=== PATIENT | male | born 1980 | race African-American/Black ===

== ENCOUNTER 2020-08-21 17:20 | Emergency (ER) | payer MEDICARE ==
[~2020-08-21] VITALS: Ht 172.7 cm; Wt 115.7 kg
--- NOTE | 2020-08-21 17:50 | NUR ---
Patient came in to the er c/o +SI, "i want to stab myself with a knife",-HI. On room air, breathing evenly and unlabored. kept comfortable, will continue to monitor accordingly.
--- NOTE | 2020-08-21 17:56 | NUR ---
Urine collected and sent to lab
--- NOTE | 2020-08-21 17:58 | NUR ---
Called security for wanding
[2020-08-21] MEDS ORDERED: LORAZEPAM 1 MG TABLET PO ONE (18:00)
--- NOTE | 2020-08-21 18:00 | NUR ---
Security at bedside for wanding
[2020-08-21 18:02] LABS: BASOPHILS # (AUTO) 0.1 /CMM (0.0-0.2); BASOPHILS % (AUTO) 0.7 % (0.0-2.0); EOSINOPHILS % (AUTO) 1.4 % (0.0-6.0); HEMATOCRIT 48 % (39-51); HEMOGLOBIN 15.8 g/dL (13.5-17.5); LYMPHOCYTES # (AUTO) 2.4 /CMM (0.8-4.8); LYMPHOCYTES % (AUTO) 30.2 % (20.0-44.0); MEAN CORPUSCULAR HGB CONC 33 g/dl (31.0-36.0); MEAN CORPUSCULAR VOLUME 87 fL (80-96); MONOCYTES # (AUTO) 0.8 /CMM (0.1-1.30); MONOCYTES % (AUTO) 10.3 % (2.0-12.0); NEUTROPHILS # (AUTO) 4.5 /CMM (1.8-8.9); NEUTROPHILS % (AUTO) 57.4 % (43.0-81.0); PLATELET COUNT (AUTO) 200 /CMM (150-450); RED BLOOD CELL COUNT(AUTO) 5.59 MIL/uL (4.5-6.0); WHITE BLOOD COUNT (AUTO) 7.8 K/uL (4.3-11.0)
[2020-08-21] MEDS ORDERED: LORAZEPAM 1 MG TABLET ONE (18:21)
[2020-08-21 18:24] LABS: CALCIUM, SERUM 9.1 mg/dL (8.5-10.1); CARBON DIOXIDE 29 mmol/L (21-32); CHLORIDE 98 mmol/L (98-107); CREATININE 1.1 mg/dL (0.6-1.3); GLUCOSE 87 mg/dL (74-106); POTASSIUM 4.1 mmol/L (3.5-5.1); SODIUM SERUM 136 mmol/L (136-145); UREA NITROGEN, BLOOD 14 mg/dL (7-18)
[2020-08-21 18:29] LABS: ALANINE AMINOTRANSFERASE 47 U/L (12-78); ALBUMIN 4.3 g/dL (3.4-5.0); ALCOHOL, BLOOD < 3 mg/dL (0-0); ALKALINE PHOSPHATASE 61 U/L (46-116); ASPARTATE AMINOTRANSFERASE 29 U/L (15-37); BILIRUBIN,DIRECT 0.1 mg/dL (0.0-0.2); BILIRUBIN,TOTAL 0.2 mg/dL (0.2-1.0); TOTAL PROTEIN, SERUM 8.4 g/dL (6.4-8.2)
[2020-08-21 18:42] LABS: ACETAMINOPHEN < 2 ug/ml (10-30)
[2020-08-21 20:32] LABS: APPEARANCE,URINE CLEAR (CLEAR); BILIRUBIN,URINE NEGATIVE (NEGATIVE); BLOOD, URINE NEGATIVE Ery/uL (NEGATIVE); COLOR,URINE YELLOW (YELLOW); LEUKOCYTE ESTERASE ,URINE NEGATIVE (NEGATIVE); NITRITE, URINE NEGATIVE (NEGATIVE); PROTEIN,URINE NEGATIVE (NEGATIVE); UGLUCOSE NEGATIVE (NEGATIVE); UROBILINOGEN,URINE 0.2 EU/dL (0.2)
--- NOTE | 2020-08-21 21:16 | NUR ---
LAB CALLED REGARDING NEGATIVE COVID RESULT.
--- NOTE | 2020-08-21 21:20 | NUR ---
CLINICAL FAXED TO [facility] FOR VOLUNTARY PSYCH ADMISSION.
--- NOTE | 2020-08-22 09:00 | NUR ---
PATIENT A/OX4, BREATHING EVEN AND UNLABORED, AMBULATORY, PROVIDED BREAKFAST TRAY.
--- NOTE | 2020-08-22 10:56 | NUR ---
[employer] SURFACE FIRE SUPPORT PLANNER AT BEDSIDE.
--- NOTE | 2020-08-22 11:00 | NUR ---
PATIENT A/OX4, BREATHING EVEN AND UNLABORED, NO SOB NOTED. Patient given written and verbal discharge instructions. Patient verbalizes understanding of instructions. Patient is ambulatory with steady gait. Refuses offer of halfway placement. Patient given list of available shelters in surrounding area.
--- NOTE | 2020-08-22 11:00 | NUR ---
Regulatory Law Specialist consulted requested by ED. The pt. is a 40-year old Male who presents in the [facility] ED with suicidal ideation. Per MD Note, Patient initially presented to the emergency department for hearing voices with positive suicidal ideation and a plan to stab himself with a knife. Per SS consult, the pt. was walking near his assigned ED bed, and agreeable to be interviewed by this social service assistant. Pt. is ambulatory and has a cane. Pt. remained calm and cooperative throughout interview. The pt. is alert and oriented x 4 and made appropriate eye contact. The pt. denies current HI; patient denied hallucinations, delusions. The pt. denied having thoughts of suicide with a plan. Pt. declined voluntary psych placement. The pt. stated, I have been using meth, and weed. Pt. states he also drinks alcohol, and smokes tobacco. Pt. stated hes been diagnosed with bipolar disorder, schizophrenia. Pt. stated he is not taking any medication for his mental illness. SW discussed discharge plans with the patient. Pt. stated that he wants to be discharged to self. Pt. was offered clothing and declined. SW offered the patient community resources for homeless individuals, and patient was receptive to these resources. SW provide pt. with the following resources: Substance Abuse resources provided included: [facility] Substance Abuse Self-Helpline ([facility]) ; [facility] [address] [facility] [place] [address] ; [facility] [address] [facility] [address] ; [facility] [address] [place] [address] ; Year-round shelters : [facility] [address] [place] [address] ; [facility] [address] [place] [address]; [facility] [address] [facility] [address] Hygiene: [facility] [address] [place] ; [facility] [address] [facility] ; [place] [address], [place] . Food Resources: [facility] at [facility]- [address] [place]; Meet Each Need sammi [facility] ([facility]) [address] [place]; [facility] [address] [facility]; [facility] [address] [facility]. Mental Health resources provided: [facility] [address] [place] [address] ; [facility] [place], [facility]. [address] [facility] [address], [place] [address] ; [facility] [address] [facility] [place] [address] ; [facility] [place] [address] . MARI met with Dr. Mary Solano and ED RN Hannah and informed them of above assessment, and SS interventions provided. It was agreed that patient can be discharged with the resources provided. Patient signed the homeless waiver, which SW then filed in patients ED chart. Pt. was offered bus pass, however he chose to leave the ED before receiving it.
[2020-08-22 11:02] VITALS: BP 140/76
== END 2020-08-22 11:02 | disposition home or self-care (01) ==
LOC: ER 17:29
DX: R45.851 Suicidal ideations (principal); F31.9 Bipolar disorder, unspecified; Z59.0 Homelessness; Z20.828 Contact with and (suspected) exposure to other viral communicable diseases; I10 Essential (primary) hypertension; F20.9 Schizophrenia, unspecified; F17.210 Nicotine dependence, cigarettes, uncomplicated; R78.89 Finding of other specified substances, not normally found in blood; F10.10 Alcohol abuse, uncomplicated; Y90.0 Blood alcohol level of less than 20 mg/100 ml
CPT/HCPCS: 36415; 80048-TC; 80076-TC; 81000-TC; 85025-TC; C9803; G0480

== ENCOUNTER 2020-08-22 16:55 | Emergency (ER) | payer MEDICARE ==
[~2020-08-22] VITALS: Ht 172.7 cm; Wt 115.7 kg
[2020-08-22 17:02] VITALS: BP 140/77
--- NOTE | 2020-08-22 17:40 | NUR ---
SHOAIB OSORIO WITH PATIENT FOR EVAL
[2020-08-22 17:52] LABS: BASOPHILS % (AUTO) 0.7 % (0.0-2.0); HEMATOCRIT 48 % (39-51); HEMOGLOBIN 15.5 g/dL (13.5-17.5); LYMPHOCYTES # (AUTO) 2.3 /CMM (0.8-4.8); MEAN CORPUSCULAR HGB CONC 32 g/dl (31.0-36.0); MEAN CORPUSCULAR VOLUME 87 fL (80-96); MONOCYTES # (AUTO) 0.7 /CMM (0.1-1.30); MONOCYTES % (AUTO) 10.1 % (2.0-12.0); NEUTROPHILS # (AUTO) 3.8 /CMM (1.8-8.9); NEUTROPHILS % (AUTO) 54.2 % (43.0-81.0); PLATELET COUNT (AUTO) 202 /CMM (150-450); RED BLOOD CELL COUNT(AUTO) 5.53 MIL/uL (4.5-6.0)
[2020-08-22 17:56] LABS: APPEARANCE,URINE CLEAR (CLEAR); BILIRUBIN,URINE NEGATIVE (NEGATIVE); BLOOD, URINE NEGATIVE Ery/uL (NEGATIVE); COLOR,URINE YELLOW (YELLOW); KETONES,URINE NEGATIVE (NEGATIVE); LEUKOCYTE ESTERASE ,URINE NEGATIVE (NEGATIVE); NITRITE, URINE NEGATIVE (NEGATIVE); PH,URINE 6.5 (5.0-8.0); PROTEIN,URINE NEGATIVE (NEGATIVE); UGLUCOSE NEGATIVE (NEGATIVE); UROBILINOGEN,URINE 0.2 EU/dL (0.2)
[2020-08-22] MEDS ORDERED: OLANZAPINE 5 MG TABLET PO ONE (18:00)
[2020-08-22 18:29] LABS: ALANINE AMINOTRANSFERASE 56 U/L (12-78); ALBUMIN 4.4 g/dL (3.4-5.0); ALCOHOL, BLOOD < 3 mg/dL (0-0); ALKALINE PHOSPHATASE 59 U/L (46-116); ASPARTATE AMINOTRANSFERASE 40 U/L (15-37); BILIRUBIN,DIRECT 0.1 mg/dL (0.0-0.2); BILIRUBIN,TOTAL 0.3 mg/dL (0.2-1.0); CALCIUM, SERUM 9.3 mg/dL (8.5-10.1); CARBON DIOXIDE 26 mmol/L (21-32); CHLORIDE 99 mmol/L (98-107); CREATININE 1.1 mg/dL (0.6-1.3); GLUCOSE 90 mg/dL (74-106); POTASSIUM 4.1 mmol/L (3.5-5.1); SODIUM SERUM 134 mmol/L (136-145); TOTAL PROTEIN, SERUM 8.6 g/dL (6.4-8.2); UREA NITROGEN, BLOOD 11 mg/dL (7-18)
[2020-08-22] MEDS ORDERED: OLANZAPINE 5 MG TABLET ONE (18:59)
--- NOTE | 2020-08-22 19:08 | NUR ---
ATTEMPTED TO MEDICATE, PATIENT DECIDED TO LEAVE EARLIER ACCORDING TO ANNMARIE RN
== END 2020-08-22 19:12 | disposition home or self-care (01) ==
LOC: ER 16:55
DX: F19.10 Other psychoactive substance abuse, uncomplicated (principal); F22 Delusional disorders; F12.90 Cannabis use, unspecified, uncomplicated; F20.9 Schizophrenia, unspecified; F31.9 Bipolar disorder, unspecified; I10 Essential (primary) hypertension; Z60.2 Problems related to living alone
CPT/HCPCS: 36415; 80048-TC; 80076-TC; 81000-TC; 85025-TC; G0480

== ENCOUNTER 2020-08-23 07:33 | Emergency (ER) | payer MEDICARE ==
[~2020-08-23] VITALS: Ht 172.7 cm; Wt 95.3 kg
--- NOTE | 2020-08-23 08:00 | NUR ---
feeling anxious s/p smoking meth this morning. Patient a/ox4, breathing even and unlabored, no sob noted. Ambulatory with steady gait. Needs attended, kept comfortable.
--- NOTE | 2020-08-23 12:28 | NUR ---
RECIEVED A CALL FROM [facility], [facility]. SPOKE TO SAIRA AND PATIENT HAS BEEN ACCEPTED UNDER THE CARE OF DR. CAMACHO/DR. GARCIA. NUMBER FOR REPORT [phone].
--- NOTE | 2020-08-23 12:34 | NUR ---
CALLED [facility] FOR AMBULANCE TRANSPORT TO [facility]. ETA 30 MINUTES.
--- NOTE | 2020-08-23 13:10 | NUR ---
PER [facility]BUL[facility] CREW NUMBER [id number], CANNOT TRANSPORT PT DUE TO BP TOO HIGH. CANCELLED ON SCENE AND PATIENT INFO RETURNED.
--- NOTE | 2020-08-23 13:36 | NUR ---
CALLED [facility] FOR AMBULANCE TRANSPORT TO [facility]. ETA 1530. TRIP NUMBER [id number].
--- NOTE | 2020-08-23 15:36 | NUR ---
PATIENT A/OX4, BREATHING EVEN AND UNLABORED, NO SOB NOTED. PATIENT TRANSFERR[facility], IN STABLE CONDITION.
[2020-08-23 15:37] VITALS: BP 170/99
== END 2020-08-23 15:38 ==
LOC: ER 07:34
DX: F19.959 Other psychoactive substance use, unspecified with psychoactive substance-induced psychotic disorder, unspecified (principal); R45.851 Suicidal ideations; F15.10 Other stimulant abuse, uncomplicated; R44.0 Auditory hallucinations; I10 Essential (primary) hypertension; F31.9 Bipolar disorder, unspecified; Z60.2 Problems related to living alone

== ENCOUNTER 2020-09-06 23:45 | Emergency (ER) | payer MEDICARE ==
[~2020-09-06] VITALS: Ht 172.7 cm; Wt 115.7 kg
[2020-09-07 00:29] LABS: BASOPHILS % (AUTO) 0.6 % (0.0-2.0); HEMATOCRIT 44 % (39-51); HEMOGLOBIN 14.1 g/dL (13.5-17.5); LYMPHOCYTES # (AUTO) 2.2 /CMM (0.8-4.8); LYMPHOCYTES % (AUTO) 35.4 % (20.0-44.0); MEAN CORPUSCULAR HGB CONC 32 g/dl (31.0-36.0); MEAN CORPUSCULAR VOLUME 87 fL (80-96); MONOCYTES # (AUTO) 0.5 /CMM (0.1-1.30); MONOCYTES % (AUTO) 8.5 % (2.0-12.0); NEUTROPHILS # (AUTO) 3.2 /CMM (1.8-8.9); NEUTROPHILS % (AUTO) 52.5 % (43.0-81.0); PLATELET COUNT (AUTO) 245 /CMM (150-450); RED BLOOD CELL COUNT(AUTO) 5.03 MIL/uL (4.5-6.0); WHITE BLOOD COUNT (AUTO) 6.1 K/uL (4.3-11.0)
[2020-09-07 00:33] LABS: CALCIUM, SERUM 8.8 mg/dL (8.5-10.1); CARBON DIOXIDE 29 mmol/L (21-32); CHLORIDE 105 mmol/L (98-107); GLUCOSE 102 mg/dL (74-106); POTASSIUM 4.3 mmol/L (3.5-5.1); SODIUM SERUM 139 mmol/L (136-145); UREA NITROGEN, BLOOD 19 mg/dL (7-18)
--- NOTE | 2020-09-07 00:36 | NUR ---
PT CAME TO THE ER C/O PARANOIA AND AUDITORY HALLUCINATIONS SAYING "NEGATIVE THINGS". PT DENIES SI/HI. PT AAOX4, VSS, RESPIRATIONS EVEN AND UNLABORED ON RA W/ NAD NOTED. PT CONNECTED TO THE MONITOR AND POX
[2020-09-07 00:39] LABS: ACETAMINOPHEN < 10 ug/ml (10-30); ALANINE AMINOTRANSFERASE 54 U/L (12-78); ALBUMIN 3.8 g/dL (3.4-5.0); ALCOHOL, BLOOD 4 mg/dL (0-0); ALKALINE PHOSPHATASE 70 U/L (46-116); ASPARTATE AMINOTRANSFERASE 38 U/L (15-37); BILIRUBIN,DIRECT 0.1 mg/dL (0.0-0.2); BILIRUBIN,TOTAL 0.1 mg/dL (0.2-1.0); TOTAL PROTEIN, SERUM 7.9 g/dL (6.4-8.2)
[2020-09-07 00:50] LABS: BILIRUBIN,URINE Negative (NEGATIVE); BLOOD, URINE Negative Ery/uL (NEGATIVE); COLOR,URINE YELLOW (YELLOW); LEUKOCYTE ESTERASE ,URINE Negative (NEGATIVE); NITRITE, URINE Negative (NEGATIVE); PH,URINE 7.5 (5.0-8.0); PROTEIN,URINE Negative (NEGATIVE); UGLUCOSE Negative (NEGATIVE)
[2020-09-07 01:12] LABS: BACTERIA,URINE None seen /HPF (None Seen); MUCUS,URINE Few /LPF (None Seen); RBC,URINE 0-2 /HPF (0-2); SQUAMOUS EPITHELIAL CELL,UR Few /HPF (None Seen); URINE AMORPHOUS PHOSPHATES Few /HPF (None Seen); WBC,URINE 0-2 /HPF (0-3)
--- NOTE | 2020-09-07 04:03 | NUR ---
Patient given written and verbal discharge instructions. Patient verbalizes understanding of instructions. Patient is ambulatory with steady gait. Refuses offer of correction placement. Patient given list of available shelters in surrounding area.Pt refused to sign homeless waiver and aci
[2020-09-07 04:11] VITALS: BP 135/82
== END 2020-09-07 04:11 | disposition home or self-care (01) ==
LOC: ER 23:51
DX: R44.0 Auditory hallucinations (principal); F19.10 Other psychoactive substance abuse, uncomplicated; I10 Essential (primary) hypertension; F31.9 Bipolar disorder, unspecified; Z60.2 Problems related to living alone
CPT/HCPCS: 36415; 80048-TC; 80076-TC; 81000-TC; 85025-TC; G0480